=== PATIENT | female | born 1940 | race Caucasian/White ===

== ENCOUNTER 2021-12-11 00:44 | Inpatient (IN) | payer OTHER ==
[~2021-12-11] VITALS: Ht 149.9 cm; Wt 64.9 kg
[2021-12-11 01:46] LABS: HEMOGLOBIN 12.2 gm/dl (12.3-15.3); RED BLOOD COUNT 4.06 M/UL (4.00-5.10); WHITE BLOOD COUNT 14.2 K/UL (4.5-11.0)
[2021-12-11] MEDS ORDERED: GLIPIZIDE ER10 MG PO (15:56)
[2021-12-11] MEDS ORDERED: AMLODIPINE BESYL5 MG PO (15:56)
[2021-12-11] MEDS ORDERED: HYDROCHLOROTHIA25 MG PO (15:57)
[2021-12-11] MEDS ORDERED: PROTONIX40 MG PO (15:58)
[2021-12-11] MEDS ORDERED: METOPROLOL TAR100 MG PO (15:58)
[2021-12-11] MEDS ORDERED: PROAIR HFA8.5 GM INH (15:59)
[2021-12-11] MEDS ORDERED: SYMBICORT 160-1 INHA INH (15:59)
[2021-12-12 05:24] LABS: HEMOGLOBIN 10.4 gm/dl (12.3-15.3); WHITE BLOOD COUNT 12.2 K/UL (4.5-11.0)
[2021-12-12 05:29] LABS: RED BLOOD COUNT 3.43 M/UL (4.00-5.10)
[2021-12-13 04:48] LABS: HEMOGLOBIN 10.5 gm/dl (12.3-15.3); RED BLOOD COUNT 3.52 M/UL (4.00-5.10); WHITE BLOOD COUNT 12.9 K/UL (4.5-11.0)
[2021-12-14 01:56] LABS: HEMOGLOBIN 10.2 gm/dl (12.3-15.3); RED BLOOD COUNT 3.38 M/UL (4.00-5.10); WHITE BLOOD COUNT 12.3 K/UL (4.5-11.0)
[2021-12-15 02:16] LABS: RED BLOOD COUNT 3.34 M/UL (4.00-5.10); WHITE BLOOD COUNT 13.7 K/UL (4.5-11.0)
[2021-12-16 02:04] LABS: HEMOGLOBIN 10.4 gm/dl (12.3-15.3); RED BLOOD COUNT 3.48 M/UL (4.00-5.10); WHITE BLOOD COUNT 10.4 K/UL (4.5-11.0)
[2021-12-17 02:28] LABS: HEMOGLOBIN 9.9 gm/dl (12.3-15.3); RED BLOOD COUNT 3.3 M/UL (4.00-5.10); WHITE BLOOD COUNT 11.5 K/UL (4.5-11.0)
[2021-12-18 02:12] LABS: HEMOGLOBIN 10.2 gm/dl (12.3-15.3); RED BLOOD COUNT 3.32 M/UL (4.00-5.10)
[2021-12-19 03:14] LABS: HEMOGLOBIN 10.1 gm/dl (12.3-15.3); RED BLOOD COUNT 3.4 M/UL (4.00-5.10); WHITE BLOOD COUNT 12.2 K/UL (4.5-11.0)
--- NOTE | 2021-12-19 18:01 | NUR ---
12/19/21 1630 WALKING O2 SAT 87-88%
[2021-12-20] MEDS ORDERED: MEGACE 400400 MG/10 PO (11:47)
[2021-12-20] MEDS ORDERED: CLOPIDOGREL75 MG PO (11:47)
[2021-12-20] MEDS ORDERED: ASPIRIN EC81 MG PO (11:47)
[2021-12-20] MEDS ORDERED: IPRAT-ALBUT 0.5-3 ML INH (11:47)
[2021-12-20] MEDS ORDERED: ATORVASTATIN CA20 MG PO (11:47)
[2021-12-20] MEDS ORDERED: MYCOSTATIN100000 UTS PO (11:47)
[2021-12-20] MEDS ORDERED: NICOTINE PATCH1 EAC2 TOP (11:47)
--- NOTE | 2021-12-20 12:31 | NUR ---
12/20/21 1230 REPORT CALLED TO HIRAL AT [facility]
== END 2021-12-20 13:50 | disposition home health service (06) | DRG 246 ==
LOC: ER1 00:44 → CDU 00:56 → PROG CARE 00:56 → CCU 00:56 → PROG CARE 12-13 13:26
PROVIDERS: Internal Medicine; Internal Medicine Cardiovascular Disease; Internal Medicine Critical Care Medicine; Student in an Organized Health Care Education/Training Program; ADMIT Internal Medicine
PROC: 4A023N7 Measurement of Cardiac Sampling and Pressure, Left Heart, Percutaneous Approach (ICD-10-PCS; principal; 2021-12-11)
PROC: 027034Z Dilation of Coronary Artery, One Artery with Drug-eluting Intraluminal Device, Percutaneous Approach (ICD-10-PCS; 2021-12-11)
PROC: B2111ZZ Fluoroscopy of Multiple Coronary Arteries using Low Osmolar Contrast (ICD-10-PCS; 2021-12-11)
PROC: B24BZZZ Ultrasonography of Heart with Aorta (ICD-10-PCS; 2021-12-11)
DX: I21.19 ST elevation (STEMI) myocardial infarction involving other coronary artery of inferior wall (principal); N17.0 Acute kidney failure with tubular necrosis; J96.21 Acute and chronic respiratory failure with hypoxia; J18.9 Pneumonia, unspecified organism; G93.41 Metabolic encephalopathy; J44.1 Chronic obstructive pulmonary disease with (acute) exacerbation; N30.00 Acute cystitis without hematuria; Z20.822 Contact with and (suspected) exposure to COVID-19; E78.5 Hyperlipidemia, unspecified; E83.42 Hypomagnesemia; R74.01 Elevation of levels of liver transaminase levels; E11.40 Type 2 diabetes mellitus with diabetic neuropathy, unspecified; E87.5 Hyperkalemia; R00.0 Tachycardia, unspecified; F17.200 Nicotine dependence, unspecified, uncomplicated; I27.20 Pulmonary hypertension, unspecified; I95.9 Hypotension, unspecified; I10 Essential (primary) hypertension; R53.81 Other malaise; B96.20 Unspecified Escherichia coli [E. coli] as the cause of diseases classified elsewhere; I48.0 Paroxysmal atrial fibrillation; Z79.01 Long term (current) use of anticoagulants; Z82.49 Family history of ischemic heart disease and other diseases of the circulatory system; Z79.899 Other long term (current) drug therapy; Z79.82 Long term (current) use of aspirin
CPT/HCPCS: ECHO; 36415; 36600; 71045; 71046; 80048; 80053; 80061; 80307; 81001; 82550; 82553; 82565; 82803; 82962; 83036; 83735; 83880; 84100; 84132; 84439; 84443; 84484; 85025; 85027; 85347; 86140; 87077; 87086; 87186; 93005; 93306; 94640; 94664; 94760; 96374; 96375; 97110; 97116; 97116-GP-CQ; 97161; 97165; 97530; 97530-GP-CQ; 97535; 99152; 99285; C1725; C1769; C1874; J0461; J0696; J1160; J1265; J1644; J2250; J2270; J2370; J2405; J2920; J3010; J3246; J3475; J7040; J7050; Q9965

== ENCOUNTER 2022-01-17 09:31 | Inpatient (IN) | payer OTHER ==
[~2022-01-17] VITALS: Ht 149.9 cm; Wt 64.4 kg
[~2022-01-17 09:31] MED LIST: AMLODIPINE BESYL5 MG PO; ASPIRIN EC81 MG PO; ATORVASTATIN CA20 MG PO; CLOPIDOGREL75 MG PO; GLIPIZIDE ER10 MG PO; HYDROCHLOROTHIA25 MG PO; IPRAT-ALBUT 0.5-3 ML INH; MEGACE 400400 MG/10 PO; METOPROLOL TAR100 MG PO; MYCOSTATIN100000 UTS PO; NICOTINE PATCH1 EAC2 TOP; PROAIR HFA8.5 GM INH; PROTONIX40 MG PO; SYMBICORT 160-1 INHA INH
[2022-01-17 10:13] LABS: HEMOGLOBIN 11.2 gm/dl (12.3-15.3); RED BLOOD COUNT 3.75 M/UL (4.00-5.10); WHITE BLOOD COUNT 14.4 K/UL (4.5-11.0)
[2022-01-17] MEDS ORDERED: AMLODIPINE BESY10 MG PO (17:26)
[2022-01-17] MEDS ORDERED: HYDROCHLOROTHIA25 MG PO (17:28)
[2022-01-17] MEDS ORDERED: METOPROLOL TAR100 MG PO (17:30)
[2022-01-17] MEDS ORDERED: ATORVASTATIN CA40 MG PO (17:31)
[2022-01-17] MEDS ORDERED: CLOPIDOGREL75 MG PO (17:31)
[2022-01-17] MEDS ORDERED: IPRAT-ALBUT 0.5-3 ML INH (17:32)
[2022-01-17] MEDS ORDERED: MEGESTROL400 MG/11 PO (17:33)
[2022-01-17] MEDS ORDERED: PROTONIX40 MG PO (17:34)
[2022-01-17] MEDS ORDERED: PROAIR HFA8.5 GM INH (17:34)
[2022-01-17] MEDS ORDERED: ASPIRIN EC81 MG PO (17:35)
[2022-01-17] MEDS ORDERED: METFORMIN HCL500 MG PO (17:35)
[2022-01-18 03:08] LABS: HEMOGLOBIN 10.7 gm/dl (12.3-15.3); RED BLOOD COUNT 3.6 M/UL (4.00-5.10); WHITE BLOOD COUNT 15.3 K/UL (4.5-11.0)
--- NOTE | 2022-01-18 14:33 | NUR ---
AMIODARONE DRIP STOPPED AT 1430 PER PROTOCOL.
[2022-01-19 02:05] LABS: HEMOGLOBIN 9.8 gm/dl (12.3-15.3); RED BLOOD COUNT 3.27 M/UL (4.00-5.10)
[2022-01-19 02:08] LABS: WHITE BLOOD COUNT 11.2 K/UL (4.5-11.0)
[2022-01-19] MEDS ORDERED: ELIQUIS 2.5 MG2.5 MG PO (10:50)
[2022-01-19] MEDS ORDERED: MAG-OX 400 TAB400 MG PO (10:54)
[2022-01-20 03:31] LABS: RED BLOOD COUNT 3.33 M/UL (4.00-5.10); WHITE BLOOD COUNT 10.3 K/UL (4.5-11.0)
[2022-01-21 01:35] LABS: HEMOGLOBIN 10.2 gm/dl (12.3-15.3); RED BLOOD COUNT 3.43 M/UL (4.00-5.10); WHITE BLOOD COUNT 10.8 K/UL (4.5-11.0)
[2022-01-21] MEDS ORDERED: AMIODARONE HCL200 MG PO ×2 (10:07→10:08)
== END 2022-01-21 16:55 | disposition home or self-care (01) | DRG 246 ==
LOC: ER1 09:31 → PROG CARE 13:05 → CDU 13:05 → PROG CARE 16:40
PROVIDERS: Family Medicine; Physician Assistant Medical; ADMIT Internal Medicine
PROC: 027034Z Dilation of Coronary Artery, One Artery with Drug-eluting Intraluminal Device, Percutaneous Approach (ICD-10-PCS; principal; 2022-01-18)
PROC: 4A023N7 Measurement of Cardiac Sampling and Pressure, Left Heart, Percutaneous Approach (ICD-10-PCS; 2022-01-18)
PROC: B2111ZZ Fluoroscopy of Multiple Coronary Arteries using Low Osmolar Contrast (ICD-10-PCS; 2022-01-18)
DX: I21.29 ST elevation (STEMI) myocardial infarction involving other sites (principal); I50.23 Acute on chronic systolic (congestive) heart failure; J96.11 Chronic respiratory failure with hypoxia; J84.9 Interstitial pulmonary disease, unspecified; J44.9 Chronic obstructive pulmonary disease, unspecified; E11.9 Type 2 diabetes mellitus without complications; I27.20 Pulmonary hypertension, unspecified; F17.200 Nicotine dependence, unspecified, uncomplicated; E78.5 Hyperlipidemia, unspecified; I48.0 Paroxysmal atrial fibrillation; I11.0 Hypertensive heart disease with heart failure; R00.1 Bradycardia, unspecified; I08.1 Rheumatic disorders of both mitral and tricuspid valves; Z66 Do not resuscitate; Z20.822 Contact with and (suspected) exposure to COVID-19; I25.10 Atherosclerotic heart disease of native coronary artery without angina pectoris; R74.01 Elevation of levels of liver transaminase levels; Z79.899 Other long term (current) drug therapy; Z79.82 Long term (current) use of aspirin; Z79.01 Long term (current) use of anticoagulants; Z82.49 Family history of ischemic heart disease and other diseases of the circulatory system; I25.2 Old myocardial infarction; Z79.52 Long term (current) use of systemic steroids
CPT/HCPCS: 36415; 51702; 71045; 80048; 80053; 81001; 82550; 82553; 82962; 83735; 83880; 84100; 84132; 84439; 84443; 84484; 85025; 85027; 85347; 85610; 85730; 86140; 93005; 96374; 96375; 96376; 97116-GP-CQ; 97162; 99152; 99153; 99285; C1725; C1769; C1874; C1894; C9113; C9600; J1160; J1644; J1940; J2250; J2270; J2405; J3010; J3475; J7040; Q9965; Q9967

== ENCOUNTER 2022-02-14 10:10 | Inpatient (IN) | payer OTHER ==
[~2022-02-14] VITALS: Ht 149.9 cm; Wt 62.3 kg
[2022-02-14 11:32] LABS: HEMOGLOBIN 11.7 gm/dl (12.3-15.3); WHITE BLOOD COUNT 12.7 K/UL (4.5-11.0)
[2022-02-14 12:03] LABS: BUN/CREATININE RATIO 19 (0-10)
[2022-02-14] MEDS ORDERED: AMIODARONE HCL200 MG PO (15:34)
[2022-02-15 03:02] LABS: HEMOGLOBIN 9.8 gm/dl (12.3-15.3); WHITE BLOOD COUNT 11.2 K/UL (4.5-11.0)
[2022-02-15 03:13] LABS: RED BLOOD COUNT 3.39 M/UL (4.00-5.10)
== END 2022-02-15 17:37 | disposition short-term general hospital (02) | DRG 315 ==
LOC: ER1 10:10 → PROG CARE 14:40 → CDU 14:40 → PROG CARE 16:00
PROVIDERS: Physician Assistant; Physician Assistant Medical; ADMIT Internal Medicine
PROC: B24BZZZ Ultrasonography of Heart with Aorta (ICD-10-PCS; principal; 2022-02-15)
DX: I31.3 Pericardial effusion (noninflammatory) (principal); J96.11 Chronic respiratory failure with hypoxia; J84.9 Interstitial pulmonary disease, unspecified; N17.9 Acute kidney failure, unspecified; I50.22 Chronic systolic (congestive) heart failure; I13.0 Hypertensive heart and chronic kidney disease with heart failure and stage 1 through stage 4 chronic kidney disease, or unspecified chronic kidney disease; I48.0 Paroxysmal atrial fibrillation; J44.9 Chronic obstructive pulmonary disease, unspecified; I25.5 Ischemic cardiomyopathy; Z66 Do not resuscitate; I27.20 Pulmonary hypertension, unspecified; E78.5 Hyperlipidemia, unspecified; N18.9 Chronic kidney disease, unspecified; E11.22 Type 2 diabetes mellitus with diabetic chronic kidney disease; Z87.891 Personal history of nicotine dependence; Z95.5 Presence of coronary angioplasty implant and graft; I25.2 Old myocardial infarction; Z95.1 Presence of aortocoronary bypass graft; Z79.82 Long term (current) use of aspirin; Z79.899 Other long term (current) drug therapy; Z79.84 Long term (current) use of oral hypoglycemic drugs; Z82.49 Family history of ischemic heart disease and other diseases of the circulatory system
CPT/HCPCS: 36415; 71045; 80048; 80053; 82550; 82553; 82962; 83735; 83880; 84484; 85025; 85027; 93005; 93308; 99285; J3475

== ENCOUNTER → 2022-02-14 | Outpatient (CLI) | payer OTHER ==
[~2022-02-14] MED LIST changes: +AMIODARONE HCL200 MG PO; +AMLODIPINE BESY10 MG PO; +ATORVASTATIN CA40 MG PO; +ELIQUIS 2.5 MG2.5 MG PO; +MAG-OX 400 TAB400 MG PO; +MEGESTROL400 MG/11 PO; +METFORMIN HCL500 MG PO
== END ==
LOC: HEART 5 02-13 09:30 → ECHO 09:15
DX: I25.10 Atherosclerotic heart disease of native coronary artery without angina pectoris (principal); I50.9 Heart failure, unspecified
CPT/HCPCS: ECHO; 93306